=== PATIENT | female | born 1955 | race Caucasian/White ===

== ENCOUNTER 2021-11-11 11:01 | Outpatient (CLI) | payer OTHER, SELFPAY ==
--- NOTE | ~2021-11-11 | CT_ITS ---
EXAMINATION: CT soft tissue neck w con DATE: 11/11/2021 11:45 INDICATION: Mass of the nasopharynx. TECHNIQUE: Computed tomography (CT) of the neck was performed with 75 mL Omnipaque 350 intravenous co ntrast. Automated exposure control and iterative reconstruction technique were employed. The dose-valorie gth product was 524.90 mGy-cm. COMPARISON: None FINDINGS: There is mild scarring at the lung apices. Calcified mediastinal lymph nodes are consistent with old granulomatous disease. There is a 2.6 x 1.2 cm mass in the posterior left nasal cavity exte nding into the nasopharynx. There is a 2.7 x 2.4 cm peripherally hyperenhancing mass involving left b ase of tongue and floor of mouth. There are no pathologically enlarged lymph nodes. There is mild muc osal thickening in the paranasal sinuses. There is severe cervical spondylosis. IMPRESSION: 1. 2.6 x 1.2 cm mass in the left posterior nasal cavity extending into the nasopharynx, which may be benign or malignant. 2. 2.7 x 2.4 cm peripherally hyperenhancing mass involving the left base of tongue and floor of mouth suspicious for malignancy. Reviewed, dictated and finalized at location A. IMPRESSION: 1. 2.6 x 1.2 cm mass in the left posterior nasal cavity extending into the naso pharynx, which may be benign or malignant. 2. 2.7 x 2.4 cm peripherally hyperenhancing mass involving the left base of ton bob and floor of mouth suspicious for malignancy.
[2021-11-11 11:39] LABS: Estimated Glomerular Filt Rate > 60
== END 2021-11-11 11:02 | disposition home or self-care (01) ==
LOC: ANHIMG 11:05
PROVIDERS: PCP Internal Medicine; Visit Provider Otolaryngology
DX: J39.2 Other diseases of pharynx (principal)
CPT/HCPCS: 70491; Q9967

== ENCOUNTER 2023-04-23 08:57 | Inpatient (IN) | payer OTHER, SELFPAY ==
[2023-04-23] VITALS (17 sets, daily range): BP systolic 80–153; BP diastolic 50–77; PULSE 87–125; RESP 16–38; TEMP 36.1–36.3; O2SAT 98–100; BMI 29.8
--- NOTE | ~2023-04-23 | XR_ITS ---
XR chest 1V portable DATE: 04/23/2023 09:42 INDICATION: Shortness of breath TECHNIQUE: Portable AP chest on 04/23/2023 at 0935 hours COMPARISON: None FINDINGS: There is opacification of the lower half of the left chest due to a combination of pleural effusion and infiltrate or atelectasis. There is patchy infiltrate in the left mid to upper lung and right lower lung primarily. Small right pleural effusion. Cardiomegaly. Right Port-A-Cath catheter, distal tip overlying superior vena cava. Surgical clips overlie the neck bilaterally. Osteopenia. IMPRESSION: Bilateral pleural effusions, larger on the left Patchy bilateral pulmonary infiltrates, greater on the left Right Port-A-Cath Reviewed, dictated and finalized at location A.
--- NOTE | 2023-04-23 08:59 | ED.SOB ---
HPI - SOB/Dyspnea General Chief Complaint: Shortness of Breath/Dyspnea Stated Complaint: DYSPNEA Time Seen by Provider: 04/23/23 08:59 Source: family and EMS Mode of arrival: EMS History of Present Illness HPI Narrative: 67 years old white female brought to the emergency room by ambulance because of shortness of breath. History of throat cancer with metastasis, finished a course of chemotherapy without any improvement, scheduled for possible new chemotherapy next week. Patient is DNR. Not on oxygen at home. Patient arrived on 100% nonrebreather. Related Data Home Medications Medication Instructions Recorded Confirmed fluticasone propionate 50 1 spray intranasal DAILY 11/04/21 09/13/22 mcg/actuation nasal spray,suspension (Flonase Allergy Relief) azelaic acid 15 % topical foam 1 applic topical QAM AND QPM 09/13/22 09/13/22 (Finacea) lorazepam 1.5 mg capsule,extended 1.5 mg PO DAILY 09/13/22 09/13/22 release 24 hr Allergies Allergy/AdvReac Type Severity Reaction Status Date / Time No Known Allergies Allergy Verified 04/23/23 10:20 Review of Systems Review of Systems: ROS unobtainable: Yes unobtainable due to medical condition and unobtainable due to mental status PMFSH Social History Social History Smoking status: Never smoker Alcohol intake: current Substance use: unknown Lack of Transportation: No Lack of Food: Never True Current Housing: I Have Housing Concerned About Future Housing: No Difficulty Paying Gas/Electric Bills: No Difficulty Paying for Meds: No Currently Unemployed: No Education: Bachelor's Degree Difficulty w/ Childcare or Family Care: No Exam Narrative: General appearance: Well-developed, well-nourished, less responsive, tachypneic Skin: Pale, diaphoretic Head: Normocephalic, nontraumatic Eyes: Clear conjunctiva ENT: Dry oral cavity Neck: Supple, nontender Chest and respiratory: Audible rattling respiratory sounds, tachypneic, diminution of air entry bilaterally Heart: Tachycardia Abdomen: Soft, nontender, no organomegaly, quiet bowel sounds Vascular: Normal peripheral pulses, normal capillary refill. Neurologic: Alert, less responsive Course Consultations Consultation #1: DR REDMOND Date: 04/23/23 Time: 11:45 Vital Signs Vital signs: Vital Signs Temperature 36.1 C L 04/23/23 08:51 Pulse Rate 118 H 04/23/23 08:51 Respiratory Rate 38 H 04/23/23 08:51 Blood Pressure 153/74 H 04/23/23 08:51 Pulse Oximetry 99 04/23/23 08:51 Oxygen Delivery Non-Rebreather Mask 04/23/23 08:51 Oxygen Flow Rate 15 04/23/23 08:51 Temperature 36.1 C L 04/23/23 08:51 Pulse Rate 100 04/23/23 10:03 Respiratory Rate 30 H 04/23/23 10:03 Blood Pressure 149/68 H 04/23/23 10:03 Pulse Oximetry 100 04/23/23 10:03 Oxygen Delivery Non-Rebreather Mask 04/23/23 09:18 Oxygen Flow Rate 15 04/23/23 09:18 MDM - SOB/Dyspnea MDM Narrative Medical decision making narrative: Patient presents with severe shortness of breath, 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 Saturation on room air 77%, on 100% nonrebreather 98%, patient is DNR. Work-up today showed pneumonia high likely aspiration, large pleural effusion bilaterally more on the left side, blood gas showed acute hypercapnic respiratory acidosis, patient's family at the bedside, after quite a bit of explanation and discussion about her condition, the decision to make patient hospice was obtained from the her who of the power of admitted attorneys. Admit to medical floor discussed with the
--- NOTE | 2023-04-23 09:06 | ECG_ITS ---
Measurements Intervals [place] Rate: 111 P: 56 CA: 134 QRS: 6 QRSD: 93 T: 76 QT: 313 QTc: 426 Interpretive Statements SINUS TACHYCARDIA POSSIBLE LEFT ATRIAL ENLARGEMENT MINIMAL Q WAVES- HIGH LATERAL LEADS BASELINE ARTIFACT- V3-V6 ABNORMAL ECG NO PREVIOUS ECG AVAILABLE FOR COMPARISON Electronically Signed On 04-23-2023 16:50:25 CDT by Ehsan Fowler D.O.
[2023-04-23 09:21] LABS: Basophils Percent Auto 0.1 % (0.2-1.2); Hematocrit 35.9 % (37.0-47.0); Immature Granulocyte Absolute 0.13 K/mm3 (0.00-0.031); Immature Granulocyte Percent A 0.9 % (0-0.5); Lymphocytes Absolute Auto 0.28 K/mm3 (0.9-3.2); Lymphocytes Percent Auto 1.9 % (18.3-44.2); Mean Corpuscular HGB Conc 30.6 g/dl (32-36); Mean Corpuscular Hemoglobin 30.6 pg (26-34); Mean Corpuscular Volume 99.7 fl (80-100); Mean Platelet Volume 10.8 fl (7.4-10.4); Monocytes Absolute Auto 1.2 K/mm3 (0.1-0.6); Monocytes Percent Auto 8.3 % (2.6-8.5); Neutrophils Absolute Auto 13.1 K/mm3 (1.3-6.7); Neutrophils Percent Auto 88.8 % (45.5-73.1); Platelet Count Result 334 k/mm3 (150-375); Red Cell Distribution Width 14.4 % (11.5-14.5); White Blood Count 14.8 K/mm3 (4.5-10.0)
[2023-04-23] MEDS: MORPHINE SULFATE (*CRX) 2 MG/ML INJ IV PUSH (09:27)
[2023-04-23] MEDS: SODIUM CHLORIDE 0.9% IV 1,000 ML 999 ML IV CONT (09:28)
[2023-04-23 09:30] LABS: Alanine Aminotransferase 136 U/L (6-35); Albumin Level 4.1 g/dL (3.5-5.1); Alkaline Phosphatase 278 U/L (38-126); Anion Gap 9 mmol/L (8-16); Aspartate Amino Transferase 119 U/L (14-36); Bilirubin,Total 0.8 mg/dL (0.2-1.3); Blood Urea Nitrogen 30 mg/dL (7-17); Calcium 9.3 mg/dL (8.4-10.2); Carbon Dioxide 33 mmol/L (22-30); Chloride 86 mmol/L (98-107); Estimated Glomerular Filt Rate > 60; Glucose 140 mg/dL (65-110); Potassium 5.1 mmol/L (3.4-5.0); Sodium 128 mmol/L (137-145)
[2023-04-23 09:31] LABS: INR 1.1; Partial Thromboplastin Time 28.6 SECONDS (22.3-36.8); Prothrombin Time 14.2 Seconds (11.1-14.7)
[2023-04-23 09:43] LABS: NT Pro B Type Natriuretic Pept 2340 pg/mL (19.9-100); Troponin I 0.045 ng/mL (0.000-0.034)
[2023-04-23 09:53] LABS: Alveolar/Arterial O2 Gradient 321.6 mmHg; Base Excess ABG -2.6 mEq/l (+/-2.0); Fractional Inspired Oxygen 80 %; HCO3 ABG 26.2 mEq/l (22.0-26.0); Oxygen Content ABG 15.8 %vol (16.0-22.0); Oxygen Saturation ABG 98.9 % (95.0-100.0); Oxyhemoglobin 97.1 % THb (90.0-100.0); PO2 ABG 178.2 mmHg (80.0-100.0); PO2 FiO2 Ratio Arterial Blood 2.23 %; Total Hemoglobin 11.3 g/dL (12.0-18.0)
[2023-04-23 09:56] LABS: pH ABG 7.209 (7.350-7.450)
[2023-04-23 09:57] LABS: Device NASAL CANNULA; Modified Allen's Test Pass; PCO2 ABG 67.2 mmHg (35.0-45.0); Site Drawn LEFT RADIAL
[2023-04-23] MEDS: PIPERACILLIN/TAZ 4.5G/NS 100ML 4.5 GM/100 ML BAG IVPB ×3 (10:15→23:00)
--- NOTE | 2023-04-23 10:19 | PC.NURSE ---
Attempted to switch pt from NRB to nasal cannula. Pt o2 quickly dropped into the mid 80s and pt became more SOB. pt placed back on NRB at this time
[2023-04-23] MEDS: levoFLOXacin 750 MG/D5W 150 ML 750 MG/150 ML BAG 100 MG IVPB (10:34)
--- NOTE | 2023-04-23 11:53 | PCCCNOTE ---
Called to ED for Hospice referral, patient able to understand but is limited with verbal communication due to dyspnea. I spoke with family and pt concerning hospice. Referral made to [facility] hospice and facesheet and order faxed. Awaiting ETA on [facility] arrival to evaluate for GIP admission.
[2023-04-23] MEDS: SODIUM CHLORIDE 0.9% IV 1,000 ML 100 ML IV CONT ×2 (12:07→21:50)
--- NOTE | 2023-04-23 13:02 | PC.NURSE ---
[facility] here to evaluate patient
--- NOTE | 2023-04-23 13:17 | PC.NURSE ---
attempting to place pt on NC at this time.
--- NOTE | 2023-04-23 14:37 | PM.IMHP ---
H&P: HPI History of Present Illness Date/Time: 04/23/23 14:37 Chief Complaint: 67F w/ PMH throat cancer s/p resection with mets to lung liver and bone per the family. She was brought to the ER for shortness of breath. ER physician's workup revealed severe respiratory distress, acute hypoxic and hypercapnic respiratory failure with white out of left lower lung now requiring NRB, elevated troponin, elevated white count and BNP and electrolyte derangements. Dr. Darby held lengthy discussion with 5 family members present, including a daughter who is an occupational therapist. The concluded, along with the patient herself, they will pursue DNR and hospice care. I then spoke to the family myself in ER 7 and they reported the same to me. I offered my sympathy and let them know we'll do our best to keep her comfortable. We are continuing NRB most of all to provide comfort. Review of Systems Constitutional: Constitutional: Reports lethargy Cardiovascular: Cardiovascular: Denies chest pain Respiratory: Respiratory: Reports dyspnea Gastrointestinal: Gastrointestinal: Denies abdominal pain PMFSH Social History Social History Smoking status: Never smoker Alcohol intake: current Substance use: unknown Lack of Transportation: No Lack of Food: Never True Current Housing: I Have Housing Concerned About Future Housing: No Difficulty Paying Gas/Electric Bills: No Difficulty Paying for Meds: No Currently Unemployed: No Education: Bachelor's Degree Difficulty w/ Childcare or Family Care: No Meds Home Medications and Allergies Home Medications Medication Instructions Recorded Confirmed Type fluticasone propionate 50 1 spray intranasal DAILY 11/04/21 09/13/22 History mcg/actuation nasal spray,suspension (Flonase Allergy Relief) azelaic acid 15 % topical foam 1 applic topical QAM AND QPM 09/13/22 09/13/22 History (Finacea) lorazepam 1.5 mg capsule,extended 1.5 mg PO DAILY 09/13/22 09/13/22 History release 24 hr Allergies Allergy/AdvReac Type Severity Reaction Status Date / Time No Known Allergies Allergy Verified 04/23/23 10:20 Vital Signs Vital Signs - 24 hr 04/23/23 08:51 04/23/23 09:18 04/23/23 09:45 Temperature 97.0 F L Pulse Rate 118 H 125 H Respiratory Rate 38 H Blood Pressure 153/74 H Pulse Oximetry 99 100 Oxygen Delivery Non-Rebreather Mask Non-Rebreather Mask Oxygen Flow Rate 15 15 04/23/23 10:03 04/23/23 09:11 04/23/23 10:01 Temperature Pulse Rate 100 96 100 Respiratory Rate 30 H 21 H 25 H Blood Pressure 149/68 H 153/74 H 149/68 H Pulse Oximetry 100 99 99 Oxygen Delivery Oxygen Flow Rate 04/23/23 10:46 04/23/23 11:31 04/23/23 12:16 Temperature Pulse Rate 97 99 100 Respiratory Rate 18 16 25 H Blood Pressure 112/52 L 93/57 L 93/77 L Pulse Oximetry 99 99 98 Oxygen Delivery Oxygen Flow Rate 04/23/23 13:00 04/23/23 13:01 04/23/23 13:16 Temperature Pulse Rate 87 98 Respiratory Rate 17 25 H Blood Pressure 84/62 L Pulse Oximetry 98 99 Oxygen Delivery Nasal Cannula Oxygen Flow Rate 6 04/23/23 14:04 04/23/23 13:32 Temperature Pulse Rate 96 Respiratory Rate 21 H Blood Pressure 80/52 L Pulse Oximetry 100 99 Oxygen Delivery Nasal Cannula Oxygen Flow Rate 6 Exam Const: General: in distress and uncomfortable Eyes: Pupils: Equal, round and reactive pupils present Resp: Auscultation: rales, rhonchi and wheezes Other: upper airway congestion/rattling Cardio: Rate: regular rate Rhythm: regular rhythm GI: GI Palp: Yes Soft to palpation H&P: Results Labs Labs: Short CBC 04/23/23 Range/Units 09:09 WBC 14.8 H (4.5-10.0) K/mm3 Hgb 11.0 L (12.0-15.0) g/dL Hct 35.9 L (37.0-47.0) % Plt Count 334 (150-375) k/mm3 BMP 04/23/23 09:09 Sodium 128 L Potassium 5.1 H Chloride 86 L Carbon Dioxide
[2023-04-23] MEDS: ONDANSETRON INJ 4 MG/2 ML VIAL IV PUSH (17:33)
[2023-04-23] MEDS: MORPHINE SULFATE (*CRX) 4 MG/ML INJ IV PUSH (21:51)
[2023-04-24] MEDS: MORPHINE SULFATE (*CRX) 4 MG/ML INJ IV PUSH ×2 (03:52→07:31)
[2023-04-24] MEDS: PIPERACILLIN/TAZ 4.5G/NS 100ML 4.5 GM/100 ML BAG IVPB ×2 (04:59→12:39)
[2023-04-24 05:06] VITALS: BP 105/59; PULSE 92; RESP 16; TEMP 36.4; O2SAT 98
[2023-04-24 05:32] LABS: Estimated Glomerular Filt Rate > 60
[2023-04-24 08:00] VITALS: PULSE 92; RESP 16; O2SAT 99
[2023-04-24] MEDS: levoFLOXacin 750 MG/D5W 150 ML 750 MG/150 ML BAG 100 MG IVPB (08:22)
[2023-04-24 09:39] VITALS: O2SAT 99
[2023-04-24] MEDS: SODIUM CHLORIDE 0.9% IV 1,000 ML 100 ML IV CONT (10:00)
--- NOTE | 2023-04-24 12:48 | PM.IMPN ---
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, unspecified Status: Acute Assessment and Plan: DX 2021 Wants to go home on hospice as soon as feasible Transition to morphine per FT and resume TF Bowel regimen ordered 04/24/2023 d/w pt and children and spouse at bedside (4) History of throat cancer: Code(s): Z85.819 - Personal history of malignant neoplasm of unspecified site of lip, oral cavity, and pharynx Status: Acute (5) Bilateral pleural effusion: Code(s): J90 - Pleural effusion, not elsewhere classified Status: Acute (6) Metastasis: Code(s): C79.9 - Secondary malignant neoplasm of unspecified site Status: Acute Assessment and Plan: Lungs and liver per hx (7) Narrowing of airway: Code(s): J98.8 - Other specified respiratory disorders Status: Acute Assessment and Plan: Secondary to radiation changes Subjective Date/time seen: 04/24/23 12:48 Interval history: Comfortable at present. IV morphine 4 mg knocks her out. Constipated. No BM for at least 3 days. Wants to go home on hospice. Was doing well until a few days ago. Weaker. More sob. Was up and about for hours at a time until two weeks ago. Now very weak. Can get up and walk across room with standby assistance. Review of Systems Review of Systems: All systems reviewed & are unremarkable except as noted in HPI and below Exam Narrative: HEENT: PERRL, sclerae nonicteric, pharyngeal mucosa pink and intact NECK: No JVD CHEST: COARSE BS WITH SCATTERED COARSE CRACKLES. Normal effort. HEART: NL S1/S2, regular, no murmur ABDOMEN: BS+, soft, nontender, no mass, no bruits EXTREMITIES: No cyanosis, edema, or clubbing NEUROLOGIC: CN intact and symmetric to inspection. MUSCULOSKELETAL: Tone and strength symmetric. PSYCH: Alert. Oriented to person, place, and time. Objective Data Vital Signs Vital Signs: Vital Signs - 24 hr 04/23/23 13:00 04/23/23 13:01 04/23/23 13:16 Temperature Pulse Rate 87 98 Respiratory Rate 17 25 H Blood Pressure 84/62 L Pulse Oximetry 98 99 Oxygen Delivery Nasal Cannula Oxygen Flow Rate 6 04/23/23 14:04 04/23/23 13:32 04/23/23 14:42 Temperature 97.1 F L Pulse Rate 96 93 Respiratory Rate 21 H 20 Blood Pressure 80/52 L 87/50 L Pulse Oximetry 100 99 99 Oxygen Delivery Nasal Cannula Oxygen Flow Rate 6 04/23/23 17:16 04/23/23 23:03 04/24/23 05:06 Temperature 97.4 F L 97.5 F L Pulse Rate 93 91 92 Respiratory Rate 20 16 16 Blood Pressure 95/56 L 105/59 L Pulse Oximetry 99 100 98 Oxygen Delivery Nasal Cannula Oxygen Flow Rate 6 04/24/23 09:39 Temperature Pulse Rate Respiratory Rate Blood Pressure Pulse Oximetry 99 Oxygen Delivery Nasal Cannula Oxygen Flow Rate 6 Intake/Output Intake/Output: Intake & Output 04/21/23 04/22/23 04/23/23 04/24/23 23:59 23:59 23:59 23:59 Intake Total 2450 100 Output Total 400 450 Balance 2050 -350 Meds/Results Medications: Active Medications Generic Name Dose Route Start Last Admin Trade Name Freq PRN Reason Stop Dose Admin Levofloxacin/Dextrose 750 mg in 150 mls @ 100 mls/hr 04/24/23 09:00 04/24/23 08:22 Levaquin 750 Mg/D5w 150 Ml IVPB 100 mls/hr Q24H DIANA Administration Piperacillin Sod/Tazobactam Sod 4.5 gm in 100 mls @ 200 mls/hr 04/23/23 18:00 04/24/23 12:39 Zosyn 4.5 Gm/Ns 100 Ml IVPB 200 mls/hr Q6H DIANA Administration Vancomycin HCl 1,250 mg in 250 mls @ 1
[2023-04-24] MEDS: MORPHINE SULFATE ORAL CONC SOL (*CRX) 10 MG/0.5 ML SYRINGE 5 MG FEED TUBE (13:22)
[2023-04-24] MEDS: METHYLNALTREXONE 12 MG/0.6 ML VIAL SUB-Q (13:23)
[2023-04-24] MEDS: VANCOMYCIN 1,250 MG/NS 250 ML 1,250 MG/250 ML BAG 166.67 MG IVPB (13:23)
[2023-04-24 14:00] VITALS: BP 127/67; PULSE 93; RESP 15; TEMP 36.3; O2SAT 100
--- NOTE | 2023-04-24 17:35 | PM.DS ---
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, unspecified Status: Acute Assessment and Plan: DX 2021 Wants to go home on hospice as soon as feasible Transition to morphine per FT and resume TF Bowel regimen ordered 04/24/2023 d/w pt and children and spouse at bedside (4) History of throat cancer: Code(s): Z85.819 - Personal history of malignant neoplasm of unspecified site of lip, oral cavity, and pharynx Status: Acute (5) Bilateral pleural effusion: Code(s): J90 - Pleural effusion, not elsewhere classified Status: Acute (6) Metastasis: Code(s): C79.9 - Secondary malignant neoplasm of unspecified site Status: Acute Assessment and Plan: Lungs and liver per hx (7) Narrowing of airway: Code(s): J98.8 - Other specified respiratory disorders Status: Acute Assessment and Plan: Secondary to radiation changes DS: Summary Hospital Course Reason for hospitalization: dyspnea and weakness Hospital Course: Admitted due to increasing dyspnea and weakness. Found to have pulmonary infiltrates consistent with aspiration pneumonia secondary to her underlying nasopharyngeal cancer and upper airway changes caused by prior radiation therapy. She has known dysphagia and is tube feeding dependent. She was admitted initially treated with vancomycin Levaquin and Zosyn. She improved dramatically as far as her mental status and wanted to resume her tube feedings and be discharged on hospice for comfort. Her children were at bedside and in agreement with this. They met with hospice and decided to discharge on the evening of April 24 with medications as outlined below. She remained oxygen dependent at the time of discharge and hospice arranged for home oxygen therapy. Time Spent with Patient Time attestation: Total time spent providing and/or coordinating discharge services: Exam Narrative: HEENT: PERRL, sclerae nonicteric, pharyngeal mucosa pink and intact NECK: No JVD CHEST: COARSE BS WITH SCATTERED COARSE CRACKLES. Normal effort. HEART: NL S1/S2, regular, no murmur ABDOMEN: BS+, soft, nontender, no mass, no bruits EXTREMITIES: No cyanosis, edema, or clubbing NEUROLOGIC: CN intact and symmetric to inspection. MUSCULOSKELETAL: Tone and strength symmetric. PSYCH: Alert. Oriented to person, place, and time. DS: Data Data Completed and Pending Labs on day of discharge: Labs from last 24 hours 04/24/23 04:46 Creatinine 0.80 Estim Creat Clear Calc Not Reportable Estimated GFR > 60 Preliminary micro results at discharge 04/23/23 09:42 Blood Culture - Preliminary Blood 04/23/23 09:19 Blood Culture - Preliminary Blood Discharge Plan Discharge Discharging Clinician: Yann Danielson Patient Disposition: Hospice - Home Activity: as tolerated Diet: other - see discharge instructions Discharge Instructions: TF diet Jevity 1.5 240 ml 5 times per day Stand Alone Forms: General Discharge Information Follow-up/Referrals: Barbra,Xuan Garza MD [Primary Care Provider] - Discharge Medications: New sennosides [Senokot] 8.6 mg Tablet 8.6 mg feeding tube BID Qty: 14 0RF morphine concentrate 100 mg/5 mL (20 mg/mL) solution See Rx Instructions .ROUTE .COMPLEX Qty: 30 0RF Rx Instructions: 5 mg per FT every 4 hours scheduled plus 5 mg per FT every 2 h
[2023-04-24] MEDS: SENNOSIDES 8.6 MG TABLET FEED TUBE (18:59)
[2023-04-24 19:39] VITALS: BP 110/62; PULSE 89; RESP 18; TEMP 36.6; O2SAT 100
== END 2023-04-24 19:45 | disposition hospice, home (50) | DRG 189 ==
LOC: ANHED 11:45 → ANH3MEDSUR 13:45 → ANH2MED 14:01
PROVIDERS: Admitting Provider General Practice; Emergency Provider Emergency Medicine; PCP Internal Medicine; Visit Provider Internal Medicine
DX: J96.01 Acute respiratory failure with hypoxia (principal); J69.0 Pneumonitis due to inhalation of food and vomit; J90 Pleural effusion, not elsewhere classified; C79.51 Secondary malignant neoplasm of bone; C78.7 Secondary malignant neoplasm of liver and intrahepatic bile duct; C11.9 Malignant neoplasm of nasopharynx, unspecified; J96.02 Acute respiratory failure with hypercapnia; K59.00 Constipation, unspecified; Z51.5 Encounter for palliative care; Z66 Do not resuscitate
CPT/HCPCS: 36415; 36600; 71045; 80053; 82565; 82805; 83880; 84484; 85025; 85610; 85730; 87040; 87081; 93005; 96365; 96375; 99285; A9270; J1956; J2212; J2270; J2405; J2543; J3370; J7030